=== PATIENT | male | born 1970 | race Caucasian/White ===

== ENCOUNTER → 2018-07-29 | Outpatient (CLI) | payer SELFPAY ==
[~2018-07-29] MED LIST: PER PO
--- NOTE | 2018-07-29 14:15 | RADIOLOGY IMAGING REPORT ---
F[facility] PATIENT NAME: Daniel Steinberg : 1970 MR: [id number] V: [id number] EXAM DATE: ORDERING PHYSICIAN: CHRIS WEBSTER TECHNOLOGIST: Location: [facility] Patient: Daniel Steinberg : 1970 Visit/Account:[id number] Date of Sevice: 07/29/2018 KUB SINGLE VIEW ABDOMEN History: Gross hematuria. Right and left flank pain. Comparison study: None. Findings: There are no dilated loops of large or small bowel to suggest ileus or obstruction. There are no findings of nephrolithiasis and there is no ureteral calculus. No bladder calculi. There are mild findings of superolateral joint space narrowing in the hips. IMPRESSION: 1. Unremarkable bowel gas pattern. 2. No findings of a renal or ureteral calculus. Report Dictated By: Colby Lopez MD at 07/29/2018 2:08 PM Report E-Signed By: Colby Lopez MD at 07/29/2018 2:11 PM WSN:[email or web address]
== END ==
LOC: RAD 12:11
PROVIDERS: ATTEND Family Medicine
DX: R31.0 Gross hematuria (principal)
CPT/HCPCS: 74018